=== PATIENT | male | born 1945 | race Caucasian/White ===

== ENCOUNTER 2021-04-26 12:45 | Emergency (ER) | payer MEDICARE ==
[~2021-04-26] VITALS: Ht 175.3 cm; Wt 92.9 kg
--- NOTE | 2021-04-26 12:57 | NUR ---
BIB [facility] FROM . PT C/O PRODUCTIVE COUGH X3 WEEKS. OXYGEN 87% RA, PLACED ON OXYGEN 2L VIA NC 95%, AT . PT DENIES CP, SOB, N/V/D. [employer] [facility]: PIV 18G RAC. PT OXYGEN 95% RA UPON ASSESSMENT BY THIS RN. EKG COMPLETE. PT CONNECTED TO ALL MONITORING. CALL LIGHT IN REACH. AWAITING ORDERS. Addendum: 04/26/21 at 1259 by [email or web address] [employer] [facility]: FSBG [id number]
--- NOTE | 2021-04-26 13:28 | NUR ---
IVF RUNNING PER JAN. RELIGION INSTRUCTOR AT BEDSIDE FOR LAB DRAWN. 2 SETS BLOOD CX COLLECTED.
[2021-04-26 13:45] LABS: BASOPHILS % (AUTO) 1 % (0-1); EOSINOPHILS % (AUTO) 4 % (1-7); LYMPHOCYTES % (AUTO) 13 % (22-44); MEAN CORPUSCULAR HEMOGLOBIN 29.6 pg (27.5-34.5); MEAN CORPUSCULAR HGB CONC 34.4 g/dL (33.2-36.2); MEAN PLATELET VOLUME 6.7 fL (7.4-10.4); MONOCYTES % (AUTO) 8 % (2-9); NEUTROPHILS % (AUTO) 74 % (42-75); PLATELET COUNT 190 x10^3/uL (130-400); RED CELL DISTRIBUTION WIDTH 13.8 % (9.4-14.8)
[2021-04-26 14:00] LABS: ALANINE AMINOTRANSFERASE 19 U/L (12-78); ALBUMIN 3.3 g/dL (3.4-5.0); ANION GAP 3 mmol/L (5-15); CALCIUM 8.7 mg/dL (8.5-10.1); CHLORIDE 102 mmol/L (98-107); CREATININE 0.96 mg/dL (0.7-1.3)
[2021-04-26] MEDS ORDERED: SODIUM CHLORIDE FLUSH 10ML SYR IVF ONE (14:00)
[2021-04-26] MEDS ORDERED: SODIUM CHLORIDE 0.9% 1,000 ML IV ONE (14:00)
[2021-04-26 14:12] LABS: BILIRUBIN,TOTAL 0.3 mg/dL (0.2-1.0)
[2021-04-26 14:14] LABS: ALKALINE PHOSPHATASE 81 U/L (45-117); TOTAL PROTEIN 7.3 g/dL (6.4-8.2)
[2021-04-26 14:15] LABS: TROPONIN I < 0.015 ng/mL (0.000-0.045)
--- NOTE | 2021-04-26 14:18 | NUR ---
ALL RESULTS ARE BACK AT THIS TIME. CHART UP FOR RECHECK.
--- NOTE | 2021-04-26 14:23 | NUR ---
PT PROVIDED WATER, OK PER [facility].
[2021-04-26 15:15] VITALS: BP 125/70
== END 2021-04-26 15:34 | disposition home or self-care (01) ==
LOC: ED 15:22
DX: B34.9 Viral infection, unspecified (principal); J01.90 Acute sinusitis, unspecified; R94.31 Abnormal electrocardiogram [ECG] [EKG]; I10 Essential (primary) hypertension; E11.9 Type 2 diabetes mellitus without complications; E78.5 Hyperlipidemia, unspecified; Z90.89 Acquired absence of other organs; Z88.0 Allergy status to penicillin
CPT/HCPCS: 36415; 71045; 80053; 83605; 83880; 84484; 85025; 87040; 93005; 96360; 96361; 99285; J7030